=== PATIENT | male | born 1985 | race Caucasian/White ===

== ENCOUNTER 2024-11-01 14:34 | Emergency (ER) | payer OTHER ==
[~2024-11-01] VITALS: Ht 162.6 cm; Wt 78.9 kg
[2024-11-01 14:38] VITALS: BP 150/92; TEMP 98.3
[2024-11-01] MEDS ORDERED: IBUPROFEN 600 MG TABLET ONE (14:54)
[2024-11-01] MEDS: IBUPROFEN 600 MG TABLET PO ONE (15:28)
[2024-11-01] MEDS ORDERED: IBUP-1490 PO (16:15)
[2024-11-01 16:45] VITALS: O2SAT 99
== END 2024-11-01 16:46 | disposition home or self-care (01) ==
LOC: ER 14:39
DX: S39.012A Strain of muscle, fascia and tendon of lower back, initial encounter (principal); X50.0XXA Overexertion from strenuous movement or load, initial encounter; Y93.89 Activity, other specified; Y92.89 Other specified places as the place of occurrence of the external cause; Y99.9 Unspecified external cause status
CPT/HCPCS: 72128-TC; 72131-TC